=== PATIENT | male | born 1995 | race Caucasian/White ===

== ENCOUNTER 2017-01-09 18:05 | Emergency (ER) | payer SELFPAY ==
[~2017-01-09] VITALS: Ht 170.2 cm; Wt 68.0 kg
[2017-01-09 18:05] VITALS: BP 134/65; PULSE 110; RESP 16; TEMP 97.5; O2SAT 95
--- NOTE | 2017-01-09 18:15 | NUR ---
Patient to ER bed H1 to gown for evaluation. Side rails up. Report given to FLORI JIMENEZ.
--- NOTE | 2017-01-09 18:45 | NUR ---
ER at bedside examining patient.
--- NOTE | 2017-01-09 19:06 | NUR ---
Patient AND OFFICER given written and verbal discharge instructions and verbalizes understanding. ER MD discussed with patient the results and treatment provided. Patient in stable condition. ID arm band removed. NO Rx given. Patient educated on pain management and to follow up with PMD. Pain Scale 0/10. Opportunity for questions provided and answered.
[2017-01-09 19:11] VITALS: BP 131/61; PULSE 105; RESP 16; TEMP 97.5; O2SAT 95
== END 2017-01-09 19:08 ==
LOC: SED 18:05
DX: Z02.89 Encounter for other administrative examinations (principal); F41.9 Anxiety disorder, unspecified
CPT/HCPCS: 99283